=== PATIENT | male | born 1950 | race Native Hawaiian/Other Pacific Islander ===

== ENCOUNTER 2022-11-09 12:53 | Outpatient (CLI) | payer OTHER | END 2022-11-09 19:12 | disposition home or self-care (01) | LOC: RAD 12:53 | PROVIDERS: ATTEND Internal Medicine | DX: M25.511 Pain in right shoulder (principal); M79.601 Pain in right arm; R19.7 Diarrhea, unspecified | CPT/HCPCS: 82272; 83630; 87015; 87045; 87324; 87328; 87329; 87449; 87899 ==

== ENCOUNTER 2022-11-25 12:46 | Outpatient (CLI) | payer OTHER ==
[2022-11-25 13:17] LABS: PLATELET COUNT 277 K/uL (142-355)
[2022-11-25 13:42] LABS: POTASSIUM 4.2 mmol/L (3.6-5.2)
== END 2022-11-25 19:08 | disposition home or self-care (01) ==
LOC: LABW 12:46
PROVIDERS: ATTEND Nurse Practitioner Family
DX: D48.9 Neoplasm of uncertain behavior, unspecified (principal)
CPT/HCPCS: 36415; 80048; 82306; 82607; 83735; 84207; 84630; 85027; 85652; 86140; 86308; 86664; 86665